=== PATIENT | male | born 1990 | race Caucasian/White ===

== ENCOUNTER 2022-11-27 19:52 | Emergency (ER) | payer BC, SELFPAY ==
--- NOTE | ~2022-11-27 | CT_ITS ---
EXAMINATION: CT abdomen pelvis wo con DATE: 11/27/2022 21:21 INDICATION: Left flank pain TECHNIQUE: Computed tomography (CT) of the abdomen and pelvis was performed without intravenous contr ast. Automated exposure control and iterative reconstruction technique were employed. The dose-length product was 789.46 mGy-cm. COMPARISON: None FINDINGS: Lung bases are clear. Heart size is normal. No pericardial or pleural effusion. Liver, gallbladder, p ancreas and bilateral adrenal glands are normal. A couple splenic calcifications consistent with old granulomatous disease. 3 mm at least partially obstructing stone at the distalmost left ureter approx imately 1 cm from the ureterovesicular junction with mild left hydroureteronephrosis. There is an add itional one-2 mm stone at the upper pole of the left kidney. Right kidney and ureter are normal with no right-sided urolithiasis or hydronephrosis. Partially decompressed bladder is normal. There is dil ation of the proximal appendix measures up to 2.5 cm at the confluence with the cecum where it result s in inward bulging of the cecal wall. There is abrupt tapering at the level of the mid appendix the distal half of the appendix measuring no greater than 3 mm in maximal diameter. There is no surroundi ng inflammatory stranding to suggest acute appendicitis. No evident wall thickening/irregularity or a ssociated more nodular solid soft tissue component at the dilated portion of the appendix to more spe cifically elevated concern for malignancy. 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 Remainder of the bowels are unremarkable. No free intraperitoneal gas or fluid. No pathologically en larged abdominal or pelvic lymphadenopathy. Minimal scattered degenerative skeletal changes. IMPRESSION: 1. Left nephrolithiasis including an at least partially obstructing 3 mm distal left ureteral stone w ith mild left hydroureteronephrosis. 2. Prominent localized dilation of the proximal appendix with normal caliber distal appendix and with out surrounding inflammatory stranding to suggest acute appendicitis. Appearance is concerning for ap pendiceal mucocele which could be either nonneoplastic, benign mucinous cystadenoma or malignant muci nous cystadenocarcinoma. No appreciable wall thickening or irregularity or definitive solid soft tiss ue component to more specifically elevate concern for the latter. Recommend nonemergent surgical cons ultation. Reviewed, dictated and finalized at location A. IMPRESSION: 1. Left nephrolithiasis including an at least partially obstructing 3 mm distal left ureteral stone with mild left hydroureteronephrosis. 2. Prominent localized dilation of the proximal appendix with normal caliber di stal appendix and without surrounding inflammatory stranding to suggest acute a ppendicitis. 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 No appreciable wall thickening or irregularity or definitive solid soft tissue component to more specifically elevate concern for the latter. Nando mmend nonemergent surgical consultation.
[2022-11-27 20:05] VITALS: BP 145/91; PULSE 77; RESP 16; TEMP 36.1; O2SAT 100
[2022-11-27 20:21] LABS: Basophils Absolute Auto 0.1 K/mm3 (0.0-0.1); Basophils Percent Auto 0.4 % (0.2-1.2); Eosinophils Percent Auto 0.1 % (0-4.4); Hematocrit 49.7 % (42.0-52.0); Hemoglobin 17.2 g/dL (14.0-18.0); Immature Granulocyte Absolute 0.08 K/mm3 (0.00-0.031); Immature Granulocyte Percent A 0.5 % (0-0.5); Lymphocytes Absolute Auto 1.45 K/mm3 (0.9-3.2); Lymphocytes Percent Auto 8.8 % (18.3-44.2); Mean Corpuscular HGB Conc 34.6 g/dl (32-36); Mean Corpuscular Hemoglobin 30.6 pg (26-34); Mean Corpuscular Volume 88.4 fl (80-100); Mean Platelet Volume 9.1 fl (7.4-10.4); Monocytes Percent Auto 5.7 % (2.6-8.5); Neutrophils Percent Auto 84.5 % (45.5-73.1); Platelet Count Result 308 k/mm3 (150-375); Red Blood Count 5.62 M/mm3 (4.6-6.20); Red Cell Distribution Width 12.7 % (11.5-14.5); White Blood Count 16.6 K/mm3 (4.5-10.0)
[2022-11-27 20:43] LABS: Alanine Aminotransferase 60 U/L (6-50); Alkaline Phosphatase 75 U/L (38-126); Anion Gap 10 mmol/L (8-16); Aspartate Amino Transferase 40 U/L (17-59); Bilirubin,Total 0.8 mg/dL (0.2-1.3); Blood Urea Nitrogen 15 mg/dL (9-20); Calcium 9.4 mg/dL (8.4-10.2); Carbon Dioxide 28 mmol/L (22-30); Chloride 102 mmol/L (98-107); Estimated CRCL calculation 94 ml/min; Estimated Glomerular Filt Rate > 60; Glucose 122 mg/dL (65-110); Potassium 3.9 mmol/L (3.4-5.0); Sodium 140 mmol/L (137-145)
[2022-11-27 21:11] LABS: Bacteria Urine None Seen /hpf; Hyaline Casts Urine Present /lpf; Non Pathogenic Casts 0-2; Squamous Epithelial Cell Urine None seen /hpf (Few); WBC Urine 0-5 /hpf
[2022-11-27 21:14] LABS: Appearance Urine Clear (Clear); Bilirubin Urine 1+ (Negative); Blood Urine 2+ (Negative); Color Urine Orange (Yellow); Glucose Urine UA Trace mg/dL (Negative); Ketones Urine 1+ mg/dL (Negative); Leukocyte Esterase Ur Negative LEU/UL (Negative); Nitrate Urine Positive (Negative); Protein Urine 1+ mg/dL (Negative); Specific Grav Ur >= 1.030 (1.001-1.035)
[2022-11-27 21:16] LABS: Add Urine Microscopic? YES
[2022-11-27 21:35] VITALS: BP 143/76; PULSE 63; RESP 18; O2SAT 100
[2022-11-27] MEDS: MORPHINE SULFATE (*CRX) 4 MG/ML INJ IV PUSH (21:35)
[2022-11-27] MEDS: ONDANSETRON INJ 4 MG/2 ML VIAL IV PUSH (21:35)
[2022-11-27] MEDS: SODIUM CHLORIDE 0.9% IV 1,000 ML 999 ML IV CONT (21:35)
[2022-11-27 21:42] LABS: Lipase 68 U/L (23-300)
[2022-11-27] MEDS: HYDROmorphone HCL INJ (*CRX) 1 MG/ML SYR IV PUSH (22:03)
[2022-11-27] MEDS: fentaNYL CITRATE INJ (*CRX) 100 MCG/2 ML VIAL 50 MCG IV PUSH (22:26)
[2022-11-27] MEDS: TAMSULOSIN HCL 0.4 MG CAPSULE PO (22:38)
--- NOTE | 2022-11-27 23:01 | ED.GENADULT ---
HPI - General Adult General Chief complaint: Abdominal Pain Stated complaint: abdominal pain Time Seen by Provider: 11/27/22 21:03 History of Present Illness HPI narrative: Patient is a 32-year-old gentleman who presents the emergency department with chief complaint of left flank pain. Patient reports that for several days has had pain in the left flank area the patient reports it radiates to his left lower quadrant. The patient reports the pain is not improved by anything reports he is unable to get comfortable and reports he has not really been able to sleep. Related Data Allergies Allergy/AdvReac Type Severity Reaction Status Date / Time No Known Allergies Allergy Verified 11/27/22 20:09 Review of Systems Review of Systems: A 10 system review of systems was completed on the patient and is negative except for what is stated in the HPI. Nursing and ancillary documentation was reviewed. [facility] Past Medical History Medical History COVID-19 08/2020 Family History Family History Grandparent Diabetes mellitus Hypertension Heart disease Grandparent Diabetes mellitus Hypertension Social History Social History Smoking status: Never smoker Exam Narrative: GENERAL: Well-appearing, well-nourished, and in moderate acute pain distress. HEAD: Normocephalic, atraumatic. EYES: PERRLA and EOMI. ENT: Nares clear, no rhinorrhea or epistaxis. Mucous membranes moist. NECK: Supple. CHEST: Clear to auscultation. No respiratory distress. HEART: Regular rate and rhythm. No murmur heard. Normal peripheral pulses. ABDOMEN: Soft, nontender, nondistended, normal active bowel sounds. EXTREMITIES: Normal range of motion. No edema. SKIN: Warm, dry, no rash. NEURO: No focal deficits. Alert and oriented x3. PSYCH: Normal mood and affect. Course Vital Signs Vital signs: Vital Signs Temperature 36.1 C L 11/27/22 20:05 Pulse Rate 77 11/27/22 20:05 Respiratory Rate 16 11/27/22 20:05 Blood Pressure 145/91 H 11/27/22 20:05 Pulse Oximetry 100 11/27/22 20:05 Oxygen Delivery Room Air 11/27/22 20:05 Temperature 36.1 C L 11/27/22 20:05 Pulse Rate 63 11/27/22 21:35 Respiratory Rate 18 11/27/22 21:35 Blood Pressure 143/76 H 11/27/22 21:35 Pulse Oximetry 100 11/27/22 21:35 Oxygen Delivery Room Air 11/27/22 20:05 Medical Decision Making MDM Narrative Medical decision making narrative: Differential diagnosis includes kidney stone, UTI, pyelonephritis. Laboratory studies were obtained which showed a white blood cell count of 16.6 electrolytes showed a creatinine of 1.1 urinalysis showed 6-10 red blood cells and 0-[address] scan of the abdomen pelvis showed . Left nephrolithiasis including an at least partially obstructing 3 mm distal left ureteral stone with mild left hydroureteronephrosis. Appendix was somewhat enlarged the patient has no tenderness in the right lower quadrant. Vital Signs Vital Signs: Vital Signs Temperature 36.1 C L 11/27/22 20:05 Pulse Rate 77 11/27/22 20:05 Respiratory Rate 16 11/27/22 20:05 Blood Pressure 145/91 H 11/27/22 20:05 Pulse Oximetry 100 11/27/22 20:05 Oxygen Delivery Room Air 11/27/22 20:05 Temperature 36.1 C L 11/27/22 20:05 Pulse Rate 63 11/27/22 21:35 Respiratory Rate 18 11/27/22 21:35 Blood Pressure 143/76 H 11/27/22 21:35 Pulse Oximetry 100 11/27/22 21:35 Oxygen Delivery Room Air 11/27/22 20:05 Lab Data 11/27/22 20:14 11/27/22 20:14 Labs: Lab Results 11/27/22 11/27/22 11/27/22 Range/Units 20:14 20:14 20:14 WBC 16.6 H (4.5-10.0) K/mm3 RBC 5.62 (4.6-6.20) M/mm3 Hgb 17.2 (14.0-18.0) g/dL Hct 49.7 (42.0-52.0) % MCV 88.4 (80-100) fl M[facility]
[2022-11-27] MEDS: traMADol HCL (*CRX) 50 MG TABLET PO (23:53)
[2022-11-27] MEDS: KETOROLAC 15 MG/ML VIAL (*BKC) IV PUSH (23:58)
[2022-11-28 00:40] VITALS: BP 134/81; PULSE 70; RESP 18; O2SAT 99
== END 2022-11-28 00:40 | disposition home or self-care (01) ==
PROVIDERS: Emergency Provider Emergency Medicine; PCP Family Medicine
DX: N13.2 Hydronephrosis with renal and ureteral calculous obstruction (principal); Z86.16 Personal history of COVID-19; R93.5 Abnormal findings on diagnostic imaging of other abdominal regions, including retroperitoneum
CPT/HCPCS: 36415; 74176; 80053; 81001; 83690; 85025; 96361; 96374; 96375; 99284; A9270; J1170; J1885; J2270; J2405; J3010; J7030

== ENCOUNTER 2023-01-28 01:16 | Day surgery (SDC) | payer BC, SELFPAY ==
[2023-01-19 16:04] VITALS: BMI 28.1
--- NOTE | 2023-01-19 16:15 | PC.NURSE ---
Report to the Outpatient Waiting Room, entrance under the green pavilion located off [facility], at time 1100_ on date _01/28/23. Planned Procedure Time: 1300_. Time changes happen often and if your time is changed the preop area will call you the afternoon before. - You and your visitor will be asked to self-screen and do not enter if you have any COVID symptoms. - A mask is optional within the hospital at this time. Patients may have clear liquids (water, carbonated beverages, clear teas, apple juice) until 3 hours prior to surgery with a maximum of 20 ounces. - No food from midnight until time of surgery - Infants may have breast milk until 4 hours before surgery, formula 6 hours prior to surgery. - Children will be allowed to drink immediately following surgery. If applicable, please bring a bottle or sippy cup to assist with drinking. Juice, water, soda, and popsicles are readily available. For infants on formula, please bring formula the day of surgery. Pacifiers are allowed. Take the following medications with a SIP of water the morning of surgery: _n/a____ DO NOT STOP ANY OF YOUR OTHER PRESCRIPTION MEDICATIONS PRIOR TO SURGERY ?EXCEPT THE FOLLOWING Medications to discontinue per physician __n/a Date to take last dose Please no make-up, nail faroese, hairspray, perfume, deodorant, or body powder the day of surgery. No jewelry (including any body piercings) or valuables the day of surgery, leave them at home. Please take a shower or bath the night before, or the morning of, surgery with an antibacterial soap. Wear comfortable, loose fitting clothing. Children are encouraged to wear pajamas. - Jewelry must be removed prior to entering the operating room. Rings and piercings that are not removed may be cut off. - The hospital will not accept responsibility for valuables. - Please leave all valuables, including medications, at home the day of surgery. If you are going home after surgery, a licensed service car driver must drive you home. - NO public transportation without another adult if you receive anesthesia. - We recommend that an adult stay with you for 24 hours following discharge. - We also recommend that you do not drive, make important decision, drink alcoholic beverages, or take any drugs that were not prescribed by your health care provider for at least 24 hours after your discharge time. For Pediatric surgeries, we recommend two adults accompany the child home. Follow any additional instructions given to you from your surgeon. If you or anyone in your household have experienced Covid symptoms in the past week, please notify your surgeon or the nurse liaison at the phone number below for possible testing. Telephone instructions given to _Lee Singh_and asked if any additional questions and then verbalized understanding. Patient advised to call surgeon office or pre surgery nurse liaison [phone] if any additional questions.
[2023-01-28] VITALS (11 sets, daily range): BP systolic 120–157; BP diastolic 61–96; PULSE 70–95; RESP 12–17; TEMP 36.5–37; O2SAT 97–100
--- NOTE | 2023-01-28 10:28 | WPDANESEPPF ---
Anes - Initial Pre Proc Eval Procedure: Operation Date: 01/28/23 13:00 Proposed Procedures p Laparoscopic Appendectomy with Possible Open - Moshe Myles DO Date/Time: 01/28/23 10:28 Surgeon: Moshe Myles DO Pre Op Diagnosis: Abnormal CT of Abdomen Patient Data Age: 32 Gender: M Height: 1.73 m Weight: 84 kg Allergies Allergy/AdvReac Type Severity Reaction Status Date / Time No Known Allergies Allergy Verified 01/28/23 11:27 Home Medications Medication Instructions Recorded Confirmed Type No Home Medications 12/14/22 01/19/23 History Patient hx anesthesia problems: none Family hx anesthesia problems: none Results Review: All pre-operative results and documents have been reviewed as part of the pre-operative evaluation. [facility] Past Medical History Medical History (Updated 12/13/22 @ 14:33 by Joyce Vega) COVID-19 08/2020 History of kidney stones Surgical History Surgical History [place] teeth extracted Family History Family History (Updated 12/13/22 @ 14:19 by Madonna Zuleta) Grandparent Diabetes mellitus Hypertension Heart disease Grandparent Diabetes mellitus Hypertension Father Kidney stones Social History Social History Smoking status: Never smoker Alcohol intake: never Substance use: never Substance use type: does not use Lack of Transportation: No Lack of Food: Never True Current Housing: I Have Housing Concerned About Future Housing: No Difficulty Paying Gas/Electric Bills: No Difficulty Paying for Meds: No Currently Unemployed: No Education: High School Diploma/GED Difficulty w/ Childcare or Family Care: No Living arrangements: with family Spiritual care concerns: No Anes - Eval Final PreProcedure Day of Procedure 01/28/23 10:28 Patient weight: overweight Heart: regular rate and rhythm Lungs: clear to auscultation Airway: Mallampati scale class II Neurological: alert and oriented Last oral intake: >/= 8 hours ASA classification: II Emergent: no Anesthetic plan: proceed Anesthesia type and monitoring: general ETT and standard monitoring Results Review: All pre-operative results and documents have been reviewed as part of the pre-operative evaluation. Informed Consent: The patient's anesthetic plan and its attendant risks and benefits were discussed with the patient/family/POA. Questions were solicited and answers provided to the satisfaction of the patient/family/POA.
[2023-01-28] MEDS: KETOROLAC 15 MG/ML VIAL (*BKC) IV PUSH (11:55)
[2023-01-28] MEDS: LACTATED RINGERS 1,000 ML 30 ML IV CONT ×2 (11:55→15:32)
--- NOTE | 2023-01-28 13:16 | WPDHPUPDATE1 ---
History and Physical Update Update Date/Time: 01/28/23 13:16 History and Physical has been reviewed, including an updated exam of the patient. There are NO changes in the patient's condition. Risks, benefits, and alternatives have been discussed and questions answered. Patient agrees to proceed with procedure.
--- NOTE | 2023-01-28 13:16 | PM.IMHP ---
H&P: HPI History of Present Illness Date/Time: 01/28/23 13:16 Chief Complaint: Abnormal CT abdomen Narrative: This is a 32-year-old man who presents for laparoscopic appendectomy. He had an abnormal CT when he was experiencing symptoms from a kidney stone. He was found to have a left distal ureteral stone but also was found to have a dilated appendix suspicious for mucocele. He now presents for laparoscopic appendectomy. He reports no changes since last seen in the office. Review of Systems Review of Systems: All systems reviewed & are unremarkable except as noted in HPI and below Constitutional: Constitutional: Denies chills, Denies fever(s), Denies headache(s) and Denies weight loss Eyes: Eyes: Denies change in vision ENT: Denies dizziness, Denies headache(s), Denies neck mass and Denies throat swelling Cardiovascular: Cardiovascular: Denies chest pain, Denies lightheadedness and Denies dyspnea Respiratory: Respiratory: Denies cough, Denies dyspnea and Denies wheezing Gastrointestinal: Gastrointestinal: Denies abdominal pain, Denies change in bowel habits, Denies nausea and Denies vomiting Genitourinary: Genitourinary: Denies hematuria and Denies dysuria Musculoskeletal: Musculoskeletal: Reports as per HPI Integumentary/Breasts: Skin/Breast: Reports as per HPI Neurologic: Denies dizziness and Denies headache(s) Allergic/Immunologic: Allergic/Immunologic: Denies throat swelling and Denies wheezing PMFSH Past Medical History Medical History (Updated 12/13/22 @ 14:33 by Joyce Vega) COVID-19 08/2020 History of kidney stones Surgical History Surgical History [place] teeth extracted Family History Family History (Updated 12/13/22 @ 14:19 by Madonna Zuleta) Grandparent Diabetes mellitus Hypertension Heart disease Grandparent Diabetes mellitus Hypertension Father Kidney stones Social History Social History Smoking status: Never smoker Alcohol intake: never Substance use: never Substance use type: does not use Lack of Transportation: No Lack of Food: Never True Current Housing: I Have Housing Concerned About Future Housing: No Difficulty Paying Gas/Electric Bills: No Difficulty Paying for Meds: No Currently Unemployed: No Education: High School Diploma/GED Difficulty w/ Childcare or Family Care: No Living arrangements: with family Spiritual care concerns: No Meds Home Medications and Allergies Home Medications Medication Instructions Recorded Confirmed Type No Home Medications 12/14/22 01/19/23 History Allergies Allergy/AdvReac Type Severity Reaction Status Date / Time No Known Allergies Allergy Verified 01/28/23 11:27 Vital Signs Vital Signs - 24 hr 01/28/23 12:02 Temperature 36.5 C Pulse Rate 95 Respiratory Rate 16 Blood Pressure 120/61 Pulse Oximetry 97 Oxygen Delivery Room Air Exam Const: General: no acute distress and alert Orientation/consciousness: patient oriented x3 HENMT: Head: normocephalic and atraumatic Ears: hearing grossly normal bilaterally Face/Nose/Sinus: Normal nares present Mouth: Yes Normal oral and palatal mucosa present Eyes: Periorbital: periorbital findings normal Sclera: sclerae normal EOM: EOMs intact bilaterally Neck: Neck: normal visual inspection, no lymphadenopathy and trachea midline Chest: Chest palpation & inspection: normal inspection of the chest Resp: Effort & Inspection: normal respiratory effort Auscultation: clear to auscultation bilaterally Cardio: Jugular venous distension: no JVD Rate: regular rate Rhythm: regular rhythm Heart sounds: S1 normal heart sound present and S2 normal heart sound present Peripheral pulses: Peripheral pulses 2+ throughout GI: Inspection: normal to inspection GI Palp: Yes Soft to palpation, No Tenderness to pal
[2023-01-28] MEDS: ceFAZolin 2 GM/D5W 50 ML 2 GM/50 ML BAG IVPB (13:41)
[2023-01-28] MEDS: metroNIDAZOLE 500 MG/ISO 100ML 500 MG/100 ML BAG 100 MG IVPB (13:50)
[2023-01-28] MEDS: BUPIVACAINE/EPINEPHRINE 0.5% 50 ML VIAL 30 ML INFILTRATE (14:13)
--- NOTE | 2023-01-28 14:41 | W.PM.PROC2 ---
Procedure Note - Detailed Date of Procedure 01/28/23 Pre-op Diagnosis Abnormal CT of Abdomen Post-op Diagnosis Other (Appendiceal mass) Procedure Performed Laparoscopic appendectomy and partial cecectomy without anastomosis Surgeon Moshe Myles, DO Anesthesia General and Local (0.5% bupivicaine with epinephrine) Indications This is a 32-year-old man who presented with a recent abnormal CT. He was experiencing symptoms from a left kidney stone and a CT abdomen and pelvis had been obtained. CT showed an enlarged proximal appendix concerning for mucocele or other neoplasm. The patient was having no symptoms from this and he denied any prior history of right lower quadrant pain or appendicitis symptoms. Due to the abnormality on the imaging, I have recommended proceeding with laparoscopic appendectomy, possible open. Findings Laparoscopic appendectomy was performed. I also had to remove a portion of the patient's cecum as the dilated portion and mass appeared to involve the distal cecum. This did not appear to be narrowing the lumen of the ileocecal valve, therefore I did not have to perform a complete resection of the cecum with anastomosis. The mass appeared to be a dilated proximal appendix but did not appear to have any other concerning factors. This appeared likely to be a mucocele, but will await final pathology. No other intra-abdominal abnormalities were noted. Description of Procedure Procedure as well as risks, benefits, and alternatives were explained to the patient. The patient agreed to proceed. Written consent was obtained and placed in chart prior to procedure. The patient was brought back to surgical suite. He was placed supine on operating table. Time-out was done to confirm the patient and procedure. The patient was then intubated by the Anesthesia Department. His abdomen was prepped and draped in sterile fashion using chlorhexidine prep. A 5 mm incision was made just to the left of the patient's umbilicus and a 5 mm Optiview trocar was advanced through the abdominal layers under direct visualization. Once inside the peritoneal cavity, carbon dioxide insufflation was used to create a pneumoperitoneum. The camera was inserted and the abdomen was inspected. No immediate abnormalities were identified. The patient was then placed in slight Trendelenburg position and rotated to the left. A 5 mm incision was made in the suprapubic region in midline and a 5 mm trocar was inserted under direct visualization. A 12 mm incision was made in the left lower quadrant and a 12 mm trocar was inserted under direct visualization. The right lower quadrant was carefully inspected. The cecum was identified and then this was traced back to the appendix. The appendix was identified and grasped at the mesoappendix and lifted anteriorly. Careful blunt dissection was carried out at the base of the appendix through the mesoappendix using a [place] grasper. The mass at the base of the appendix did appear to extend onto the inferior edge of the cecum. To ensure complete resection, I chose to come across the inferior portion of the cecum as well. This appeared far enough away from the ileocecal valve. A 45 mm blue load stapler was advanced across the base of the cecum and fired, but this did not appear to come completely across the cecum and there did appear to be an opening into the lumen of the cecum. I then chose to use an echelon 60 mm stapler to come completely across this area instead. A 60 mm echelon blue load stapler was advanced across the base of the cecum and clamped and fired. This appeared to completely come across the cecum without any other abnormalities. A white reload was then clamped across the mesoappendix and fired. This freed up our appendix and partial cecum completely. It was then placed in an EndoCatch bag and removed through the left lower quadrant port. The staple lines were then inspected. Hemostasis appeared adequate and
--- NOTE | 2023-01-28 15:18 | SUR.PHASEI ---
1516: Simple mask removed.
[2023-01-28] MEDS: fentaNYL CITRATE INJ (*CRX) 100 MCG/2 ML VIAL 25 MCG IV PUSH ×2 (15:25→15:32)
[2023-01-28] MEDS: oxyCODONE HCL (*CRX) 5 MG TAB IR PO (16:15)
== END 2023-01-28 16:37 | disposition home or self-care (01) ==
PROVIDERS: PCP Family Medicine; Visit Provider Surgery
PROC: 0DTJ4ZZ Resection of Appendix, Percutaneous Endoscopic Approach (ICD-10-PCS; CPT 44970; principal; 2023-01-28 13:00)
DX: C18.1 Malignant neoplasm of appendix (principal)
CPT/HCPCS: 44238; 44970; 88304; A9270; J0690; J1100; J1885; J2250; J2405; J2704; J3010; J7120

== ENCOUNTER 2024-03-14 15:59 | Outpatient (CLI) | payer BC, SELFPAY ==
--- NOTE | ~2024-03-14 | XR_ITS ---
XR abdomen/kub 1V Ordering provider: Floyd Rivera MD History: . Calcium kidney stone . Comparison: None. FINDINGS: BOWEL: Nonobstructive bowel gas pattern. ORGANOMEGALY: None. SIGNIFICANT PATHOLOGIC CALCIFICATIONS: None. OTHER: No free air is seen under the diaphragm. IMPRESSION: NO ACUTE ABDOMINAL FINDINGS. Reviewed, dictated and finalized at location A.
== END 2024-03-14 16:00 | disposition home or self-care (01) ==
LOC: ANHIMG 16:00
PROVIDERS: PCP Family Medicine; Visit Provider Urology
DX: N20.0 Calculus of kidney (principal)
CPT/HCPCS: 74018